=== PATIENT | female | born 1960 | race African-American/Black ===

== ENCOUNTER → 2016-05-24 | Outpatient (CLI) | payer SELFPAY ==
[2016-05-24 12:41] LABS: HEMATOCRIT 41.8 % (36.0-47.0); HEMOGLOBIN 13.5 g/dL (12.0-15.5); HGB HCT DIFFERENCE -1.3; MEAN CORPUSCULAR HEMOGLOBIN 28.3 pg (27.0-33.4); MEAN CORPUSCULAR HGB CONC 32.4 g/dL (32.0-36.0); MEAN CORPUSCULAR VOLUME 87 fl (80-97); RED BLOOD COUNT 4.78 10^6/uL (3.72-5.28); RED CELL DISTRIBUTION WIDTH 13.3 % (11.5-14.0); WHITE BLOOD COUNT 10.8 10^3/uL (4.0-10.5)
[2016-05-24 13:06] LABS: ALANINE AMINOTRANSFERASE 32 U/L (9-52); ALKALINE PHOSPHATASE 104 U/L (38-126); ANION GAP 18 (5-19); ASPARTATE AMINO TRANSFERASE 23 U/L (14-36); BILIRUBIN,TOTAL 0.5 mg/dL (0.2-1.3); BLOOD UREA NITROGEN 24 mg/dL (7-20); CALCIUM 10.5 mg/dL (8.4-10.2); CARBON DIOXIDE 31 mmol/L (22-30); CHLORIDE 92 mmol/L (98-107); CHOLESTEROL 202.33 mg/dL (0-200); CREATININE RESULT 1.14 mg/dL (0.52-1.25); Direct HDL 39 mg/dL (>40); GLUCOSE 177 mg/dL (75-110); POTASSIUM 3.6 mmol/L (3.6-5.0); SODIUM 141.4 mmol/L (137-145); TOTAL PROTEIN 8.1 g/dL (6.3-8.2); TRIGLYCERIDES 308 mg/dL (<150)
[2016-05-24 13:17] LABS: DIRECT LDL 122 mg/dL (<100)
[2016-05-24 13:25] LABS: VLDL CHOLESTEROL 61.6 mg/dL (10-31)
== END ==
LOC: OD 11:44
PROVIDERS: ATTEND Family Medicine
DX: E03.9 Hypothyroidism, unspecified (principal); E11.29 Type 2 diabetes mellitus with other diabetic kidney complication; E78.2 Mixed hyperlipidemia
CPT/HCPCS: 36415; 80053; 80061; 82043; 84443; 85027

== ENCOUNTER 2016-08-10 09:05 | Emergency (ER) | payer MEDICAID ==
[2016-08-10] MEDS ORDERED: OXYCODONE-ACETAMINOPHEN 5-325 MG TABLET PO ONE (09:43)
--- NOTE | 2016-08-10 09:46 | ER Document Report ---
ED Extremity Problem, Lower - General Chief Complaint: Foot Pain Stated Complaint: LEFT FOOT PAIN Notes: 55 yo diabetic female c/o pain to top of left foot x 4 days. no trauma. increased pain with any touch or weight bearing. no previous similar pain. TRAVEL OUTSIDE OF THE [place] IN LAST 30 DAYS: No - HPI Patient complains to provider of: Pain Location: Foot - left Onset/Duration: Gradual, Constant Quality of pain: Burning, Pressure Context: Other - no trauma or injury. Recent injury: No Exacerbated by: Movement, Walking, Other - touch Relieved by: Nothing - Related Data Allergies/Adverse Reactions: No Known Allergies Allergy (Verified 08/10/16 09:17) Past Medical History - General Information source: Patient - Social History Smoking Status: Never Smoker Frequency of alcohol use: None Drug Abuse: None Lives with: Family Family History: Reviewed & Not Pertinent Patient has suicidal ideation: No Patient has homicidal ideation: No - Past Medical History Cardiac Medical History: Reports: Hx Hypercholesterolemia Endocrine Medical History: Reports: Hx Diabetes Mellitus Type 2 Renal/ Medical History: Denies: Hx Peritoneal Dialysis Review of Systems - Review of Systems Constitutional: No symptoms reported EENT: No symptoms reported Cardiovascular: No symptoms reported Respiratory: No symptoms reported Gastrointestinal: No symptoms reported Genitourinary: No symptoms reported Female Genitourinary: No symptoms reported Musculoskeletal: See HPI Skin: No symptoms reported Hematologic/Lymphatic: No symptoms reported Neurological/Psychological: No symptoms reported Physical Exam - Vital signs Vitals: Temp Pulse Resp BP Pulse Ox 98.6 F 65 14 147/79 H 95 08/10/16 09:17 08/10/16 09:17 08/10/16 09:17 08/10/16 09:17 08/10/16 09:17 Interpretation: Normal - General General appearance: Appears well, Alert - HEENT Head: Normocephalic, Atraumatic Eyes: Normal Pupils: PERRL - Respiratory Respiratory status: No respiratory distress Chest status: Nontender Breath sounds: Normal Chest palpation: Normal - Cardiovascular Rhythm: Regular Heart sounds: Normal auscultation Murmur: No - Abdominal Inspection: Normal Distension: No distension Bowel sounds: Normal Tenderness: Nontender Organomegaly: No organomegaly - Back Back: Normal, Nontender - Extremities General upper extremity: Normal inspection, Nontender, Normal color, Normal ROM , Normal temperature Foot: Tender - left dorsal foot with generalized tenderness. mild edema, nonpitting. no erythema or warmth. SMC intact. no pain to plantar foot, Edema , No evidence of FB. No: Deformity, Ecchymosis, Nail injury, Puncture wound - Neurological Neuro grossly intact: Yes Cognition: Normal Orientation: AAOx4 [place] Coma Scale Eye Opening: Spontaneous [place] Coma Scale Verbal: Oriented [place] Coma Scale Motor: Obeys Commands [place] Coma Scale Total: 15 Speech: Normal Motor strength normal: LUE, RUE, LLE, RLE Sensory: Normal - Psychological Associated symptoms: Normal affect, Normal mood - Skin Skin Temperature: Warm Skin Moisture: Dry Skin Color: Normal Course - Re-evaluation Re-evalutation: 08/10/16 09:45 pt evaluated. labs ordered. pain med ordered. will continue to monitor 08/10/16 10:32 labs significant for hypokalemia with K+ 2.7, uric acid 11.0. results reviewed with patient. will give dose of Potassium PO here and DC with RX oral potassium , colcrys and percocet for gout. pt insturcted to follow up with PCM in 2 days for recheck. will prescribe crutches to help with mobility. crutch instruction given. pt acknowledges understanding and agrees with plan. pt is stable for discharge - Vital Signs Vital signs: Temp Pulse Resp BP Pulse Ox 98.6 F 65 14 147/79 H 95 08/10/16 09:17 08/10/16 09:17 08/10/16 09:17 08/10/16 09:17 08/10/16 09:17 - Laboratory Result Diagrams: 08/10/16 09:50 08/10/16 09:50 Laboratory results interpreted by me: 08/10/16 08/10/16 09:50 09:50 WBC 12.0 H Hct 35.9 L Potassium 2.8 L* Chloride 95 L BUN 21 H Glucose 249 H Uric Acid 11.0 H Discharge - Discharge Clinical Impression: Hypokalemia Gout Qualifiers: Gout site: foot Gout etiology: unspecified cause Laterality: left Chronicity: acute Qualified Code(s): M10.9 - Gout, unspecified Condition: Stable Disposition: HOME, SELF-CARE Instructions: Gout ([facility]), Gout Diet ([facility]), Hypokalemia ([facility]), Potassium ([facility]), Oral Narcotic Medication ([facility]), Colchicine ([facility]) Additional Instructions: Your labs today are showing an acute gout attack. take meds as prescribed and use crutches as needed to help you get around Your potassium level was low today as well. you were given a dose of potassium in the ED and sent home with a prescription for potassium. please follow up with your primary care within 2 days for a recheck return to ER for any worsening of your status Prescriptions: Colchicine [Colcrys 0.6 mg Tablet] 0.6 mg PO DAILY PRN #20 tablet PRN Reason: Oxycodone HCl/Acetaminophen [Percocet 5-325 mg Tablet] 1 - 2 tab PO ASDIR PRN # 25 tablet PRN Reason: Potassium Chloride 20 meq PO DAILY #14 tablet.er
[2016-08-10 10:01] LABS: ABSOLUTE BASOPHILS # (AUTO) 0.1 10^3/uL (0.0-0.2); ABSOLUTE EOSINOPHILS # (AUTO) 0.1 10^3/uL (0.0-0.6); ABSOLUTE LYMPHOCYTES (AUTO) 3.5 10^3/uL (0.5-4.7); ABSOLUTE MONOCYTES (AUTO) 0.8 10^3/uL (0.1-1.4); ABSOLUTE NEUT (AUTO) 7.5 10^3/uL (1.7-8.2); BASOPHILS % (AUTO) 0.8 % (0-2); EOSINOPHILS % (AUTO) 1.1 % (0-6); HEMATOCRIT 35.9 % (36.0-47.0); HEMOGLOBIN 12.3 g/dL (12.0-15.5); LYMPHOCYTES % (AUTO) 29.4 % (13-45); MEAN CORPUSCULAR HEMOGLOBIN 28.6 pg (27.0-33.4); MEAN CORPUSCULAR HGB CONC 34.3 g/dL (32.0-36.0); MEAN CORPUSCULAR VOLUME 83 fl (80-97); MONOCYTES % (AUTO) 6.9 % (3-13); RED BLOOD COUNT 4.31 10^6/uL (3.72-5.28); RED CELL DISTRIBUTION WIDTH 13.6 % (11.5-14.0); SEGMENTED NEUTROPHILS % (AUTO) 61.8 % (42-78)
[2016-08-10 10:10] LABS: ALANINE AMINOTRANSFERASE 30 U/L (9-52); ALBUMIN 4.5 g/dL (3.5-5.0); ALKALINE PHOSPHATASE 87 U/L (38-126); ANION GAP 19 (5-19); ASPARTATE AMINO TRANSFERASE 24 U/L (14-36); BILIRUBIN,TOTAL 0.4 mg/dL (0.2-1.3); BLOOD UREA NITROGEN 21 mg/dL (7-20); CALCIUM 9.5 mg/dL (8.4-10.2); CARBON DIOXIDE 27 mmol/L (22-30); CHLORIDE 95 mmol/L (98-107); CREATININE RESULT 0.81 mg/dL (0.52-1.25); GLUCOSE 249 mg/dL (75-110); SODIUM 140.8 mmol/L (137-145); TOTAL PROTEIN 7.4 g/dL (6.3-8.2)
[2016-08-10 10:20] LABS: POTASSIUM 2.8 mmol/L (3.6-5.0)
[2016-08-10] MEDS ORDERED: POTASSIUM CHLORIDE 10 MEQ TABLET.SA PO ONE (10:30)
[2016-08-10 11:08] VITALS: BP 126/91
== END 2016-08-10 11:10 | disposition home or self-care (01) ==
LOC: ER 09:05
DX: E87.6 Hypokalemia (principal); M10.9 Gout, unspecified; M79.672 Pain in left foot; E78.00 Pure hypercholesterolemia, unspecified; E11.9 Type 2 diabetes mellitus without complications
CPT/HCPCS: 36415; 80053; 84550; 85025; 99283

== ENCOUNTER → 2016-12-01 | Outpatient (CLI) | payer MEDICAID ==
--- NOTE | 2016-12-19 13:16 | WOMENS IMAGING REPORT ---
EXAM DESCRIPTION: BILAT SCREENING MAMMO W/CAD COMPLETED DATE/TIME: 12/01/2016 3:17 pm REASON FOR STUDY: ROUTINE SCREENING; Z12.31 Z12.31 ENCNTR SCREEN MAMMOGRAM FOR MALIGNANT NEOPLASM O F [place]ST[place] COMPARISON: Requested but never received. TECHNIQUE: Standard craniocaudal and mediolateral oblique views of each breast recorded using [employer] l acquisition. LIMITATIONS: None. FINDINGS: RIGHT BREAST MASSES: No suspicious masses. CALCIFICATIONS: Upper outer quadrant about 10 cm deep to the nipple. ARCHITECTURAL DISTORTION: None. DEVELOPING DENSITY: None. ASYMMETRY: None noted. OTHER: No other significant findings. LEFT BREAST MASSES: No suspicious masses. CALCIFICATIONS: Loosely grouped upper outer quadrant about 8 cm deep to the nipple. ARCHITECTURAL DISTORTION: None. DEVELOPING DENSITY: None. ASYMMETRY: None noted. OTHER: No other significant findings. Read with the assistance of CAD. .[facility] - R2 Cenova Version 1.3 .[facility] - R2 Cenova Version 1.3 .[facility] - R2 Cenova Version 2.4 .[facility] [place] - R2 Cenova Version 2.4 .[facility] - R2 Valve Setter Version 9.2 IMPRESSION: Microcalcifications in both breasts. BREAST DENSITY: b. There are scattered areas of fibroglandular density. BIRAD: 0 Incomplete: Needs Additional Imaging Evaluation and/or prior Mammograms for Comparison. RECOMMENDATION: RECOMMENDED FOLLOW-UP: True lateral and magnification views of both breasts. The patient will be contacted for additional imaging. COMMENT: The patient has been notified of the results by letter per SA requirements. Additional no tification policies are in place for contacting patient with suspicious or incomplete findings. Quality ID #[id number]: The [employer] recommends an annual screening mammogram for women aged 40 years or over. This facility utilizes a reminder system to ensure that all patients receive reminder letters, and/or direct phone calls for appointments. This includes reminders for routine scr eening mammograms, diagnostic mammograms, or other Breast Imaging Interventions when appropriate. Th is patient will be placed in the appropriate reminder system. The [employer] (ACR) has developed recommendations for screening MRI of the breast s in certain patient populations, to be used in conjunction with mammography. Breast MRI surveillanc e may be appropriate for women with more than 20% lifetime risk of developing breast cancer as deter mined by genetic testing, significant family history of the disease, or history of mantle radiation f or Hodgkins Disease. ACR Practice Guidelines 2008. TECHNICAL DOCUMENTATION: FINDING NUMBER: (1) ASSESSMENT: (1) JOB ID: [id number] [employer]- All Rights Reserved
== END ==
LOC: WI 14:49
PROVIDERS: ATTEND Family Medicine
DX: Z12.31 Encounter for screening mammogram for malignant neoplasm of breast (principal)
CPT/HCPCS: 77067; G0202

== ENCOUNTER → 2016-12-27 | Outpatient (CLI) | payer MEDICAID | LOC: WI 10:32 | PROVIDERS: ATTEND Family Medicine | DX: R92.0 Mammographic microcalcification found on diagnostic imaging of breast (principal) | CPT/HCPCS: 77066; G0204 ==

== ENCOUNTER → 2018-10-08 | Outpatient (CLI) | payer MEDICAID ==
--- NOTE | 2018-10-08 20:05 | XCELERA REPORT ---
[address] [address] Transthoracic Echocardiogram Report Name: JOSÉ SPENCER Age: 57 yrs Gender: Female : 1960 Patient Status: Outpatient Patient Location: [facility] Study Date: 10/08/2018 01:26 PM Height: 66 in Weight: 220 lb BSA: 2.1 m2 Reason For Study: MURMUR Ordering Physician: BIA TSAI Performed By: Melissa Kurtz Interpretation Summary Minimal post. pericardial effusion. Mild AV sclerosis, 3 cusps AV, no , mild AR with no LV enlargement. Mild mitral annular calcification, No MS, no MVP, mild MR with no LA enlagrement. Mild concentric LVH (IVS/PW = /), normal LVEF 60%, with stage I LV diastolic dysfunction. No regional segmental wall motion abnormality, No LV enlargement. Mild TR with no RV or RA enlargement. RVSP 24mm Hg (RAP 3), no pulm hypertension. Heart murmur due to AV sclerosis with mild AR. MMode/2D Measurements & Calculations RVDd: 3.5 cm LVIDd: 4.8 cm FS: 39.3 % Ao root diam: IVSd: 1.1 cm LVIDs: 2.9 cm EDV(Teich): 2.7 cm LVPWd: 1.1 cm 108.8 ml Ao root area: ESV(Teich): 33.0 ml 5.8 cm2 LA dimension: EF(Teich): 69.7 % 3.9 cm LVLd ap4: 8.3 cm CO(MOD-sp4): EDV(MOD-sp4): 3.2 l/min 87.0 ml SV(MOD-sp4): 55.0 ml LVLs ap4: 6.8 cm ESV(MOD-sp4): 32.0 ml EF(MOD-sp4): 63.2 % Time Measurements MM R-R int: 1.0 sec MM HR: 58.0 BPM Doppler Measurements & Calculations MV E max drake: MV P1/2t max drake: Ao V2 max: AI max drake: 65.2 cm/sec 64.7 cm/sec 141.9 cm/sec 533.9 cm/sec MV A max drake: MV P1/2t: 89.0 msec Ao max PG: AI max P.5 cm/sec 8.1 mmHg 114.0 mmHg MV E/A: 0.81 MVA(P1/2t): 2.5 cm2 AI dec slope: MV dec slope: 212.7 cm/sec2 260.5 cm/sec2 MV dec time: AI P1/2t: 0.29 sec 600.4 msec LV V1 max PG: PA V2 max: PI end-d drake: TR max drake: 2.7 mmHg 76.5 cm/sec 109.7 cm/sec 228.0 cm/sec LV V1 max: PA max P.3 mmHg TR max P.4 cm/sec 20.8 mmHg AV P1/2t-pr_phl: MV P1/2t-pr_phl: 600.4 msec 89.0 msec Left Ventricle The left ventricle is normal in size. There is mild concentric left ventricular hypertrophy. LV EF is 60-%. Doppler measurements suggest impaired left ventricular relaxation, which is associated with grade I/IV or mild diastolic dysfunction. Right Ventricle The right ventricle is normal size. Atria The right atrium is normal. The left atrial size is normal. Mitral Valve There is mild mitral annular calcification. There is no evidence of mitral valve prolapse. There is no vegetation seen on the mitral valve. There is no mitral valve stenosis. There is a trace amount of mitral regurgitation. Aortic Valve The aortic valve is trileaflet. The aortic valve opens well. The aortic valve is sclerotic and shows some degree of functional abnormality. There is no aortic valvular vegetation. There is no aortic valve stenosis. There is a mild amount of aortic regurgitation. Tricuspid Valve The tricuspid valve is not well visualized secondary to technical limitations. There is a trace amount of tricuspid regurgitation. Pulmonic Valve The pulmonic valve is not well visualized. There is a mild amount of pulmonic regurgitation. Great Vessels The aortic root is normal size. Effusions Minimal pericardial effusion. I WMSI = 1.00 % Normal = 100 Segments Size X - Cannot 2 - 4 - 1-2 small Interpret 1 - Normal Hypokinetic 3 - AkineticDyskinetic 3-5 moderate 5 - 6-14 large Aneurysmal 15-16 diffuse : BIA TSAI Andre
== END ==
LOC: SP 12:27
PROVIDERS: ATTEND Family Medicine
DX: R01.1 Cardiac murmur, unspecified (principal)
CPT/HCPCS: 93306

== ENCOUNTER → 2019-01-17 | Outpatient (CLI) | payer MEDICAID ==
--- NOTE | 2019-01-17 13:36 | WOMENS IMAGING REPORT ---
EXAM DESCRIPTION: BILAT SCREENING MAMMO W/CAD COMPLETED DATE/TIME: 01/17/2019 10:11 am REASON FOR STUDY: Z12.31 SCREENING MAMMO Z12.31 ENCNTR SCREEN MAMMOGRAM FOR MALIGNANT NEOPLASM OF B RE COMPARISON: 2017 EXAM PARAMETERS: Standard craniocaudal and mediolateral oblique views of each breast recorded using digital acquisition. Read with the assistance of CAD. .[facility] - R2 Automatic Edger Version 9.2 LIMITATIONS: None. FINDINGS: Findings present which are benign by mammographic criteria. No suspicious masses, calcifi cations or architectural distortion. Pertinent benign findings: Stable benign bilateral breast parenchymal calcifications Benign mammographic findings may include one or more of the following: Smooth masses, popcorn/rim/co arse calcifications, asymmetries, post-procedure changes, and lesions with long-standing stability. IMPRESSION: BENIGN MAMMOGRAPHIC FINDINGS. BIRADS 2 BREAST DENSITY: c. The breasts are heterogeneously dense, which may obscure small masses. BIRAD: ASSESSMENT: 2 BENIGN FINDING(S) RECOMMENDATION: ROUTINE SCREENING COMMENT: The patient has been notified of the results by letter per SA requirements. Additional no tification policies are in place for contacting patient with suspicious or incomplete findings. Quality ID #[id number]: The [employer] recommends an annual screening mammogram for women aged 40 years or over. This facility utilizes a reminder system to ensure that all patients receive reminder letters, and/or direct phone calls for appointments. This includes reminders for routine scr eening mammograms, diagnostic mammograms, or other Breast Imaging Interventions when appropriate. Th is patient will be placed in the appropriate reminder system. TECHNICAL DOCUMENTATION: FINDING NUMBER: (1) ASSESSMENT: (1) JOB ID: [id number] [employer]- All Rights Reserved Reading location - IP/workstation name: [facility]
== END ==
LOC: WI 09:30
PROVIDERS: ATTEND Family Medicine
DX: Z12.31 Encounter for screening mammogram for malignant neoplasm of breast (principal)
CPT/HCPCS: 77067